=== PATIENT | male | born 1975 | race African-American/Black ===

== ENCOUNTER 2024-05-19 10:49 | Inpatient (IN) | payer OTHER, SELFPAY ==
[2024-05-19] VITALS (45 sets, daily range): BP systolic 117–254; BP diastolic 68–227; PULSE 2; BMI 32.9; BMI 33.5
[2024-05-19 08:56] LABS: Venous Blood Gas B.E. -8.2 mmol/L (-4 to +4); Venous Blood Gas O2 Sat % 77.4 %; Venous Blood Gas pCO2 59 mmHg (35-48); Venous Blood Gas pO2 51 mmHg (30-50)
[2024-05-19 08:57] LABS: Venous Blood Gas pH 7.16 (7.32-7.43)
[2024-05-19 09:00] LABS: % Basophils 0.8 % (0-2); % Eosinophils 1.3 % (0-6); % Immature Granulocytes 0.5 % (0-0.5); % Lymphocytes 22.5 % (20.5-51.1); % Neutrophils 67.9 % (42.2-75.2); Absolute Basophils 0.1 10^3/uL (0-0.2); Absolute Eosinophils 0.2 10^3/uL (0-0.7); Absolute Immature Granulocytes 0.1 10^3/uL (0-0.05); Absolute Lymphocytes 3.2 10^3/uL (1.2-3.4); Absolute Neutrophils 9.6 10^3/uL (1.4-6.5); Hematocrit 37.7 % (39.0-52.0); Hemoglobin 12.2 g/dL (13.0-18.0); Mean Corp Hgb Conc. 32.4 g/dL (33.0-37.0); Mean Corpuscular Volume 86.7 fL (80.0-94.0); Mean Platelet Volume 9.5 fL (7.4-10.4); Nucleated Red Blood Cells % 0 % (-); Platelet Count 461 10^3/uL (130-400); Red Blood Cell Count 4.35 10^6/uL (4.70-6.10); Red Cell Dist. Width 14.5 % (11.5-14.5); White Blood Cell Count 14.2 10^3/uL (4.8-10.8)
[2024-05-19] MEDS: NITROGLYCERIN PREMIX 250 IV ×2 (09:12→21:07)
--- NOTE | 2024-05-19 09:16 | ED.GENMED ---
History of Present Illness
General
Chief Complaint: Breathing Problem
Time Seen by Provider: 05/19/24 08:40
History of Present Illness
History of Present Illness:
48-year-old male with reported history of hypertension, not currently on any medication, presenting to the emergency department with respiratory distress. Patient arrives by medics, called to patient's place of work for chest pain and shortness of
breath. On their arrival, patient with increased work of breathing, and marked hypertension. Patient notes history of hypertension, however is not on any medications for it. Patient notes pain, denies any symptoms yesterday or any known history
of cardiac disease. On arrival to the hospital, markedly hypertensive, increased work of breathing, acute distress. No additional history or symptoms obtained at this time given patient's critical condition
Phy Exam
Physical Exam
Physical Exam:
General: Acute respiratory distress
HEENT: Arrives on CPAP
Neck: appears supple
CV: Tachycardic, regular rhythm, no evidence of cyanosis
Resp: Work of breathing, tachypneic, retractions, diffuse crackles and diaphoresis
Abd: Soft and non-distended, no tenderness to palpation
Extremities: +2 pitting edema bilaterally
Neuro: alert, no focal neurologic deficit
: deferred
Rectal: deferred
Psych: Normal affect
Skin: Intact
Scores
Heart Failure Risk
Heart Failure Risk Score: Yes
History of Stroke or TIA: No
History of intubation for respiratory distress: No
Heart rate on ED arrival >/= 110: Yes
SaO2 <90% on arrival on room air: Yes
HR >/=110 during 3min walk test (or too ill to perform test): Yes
ECG has acute ischemic changes: No
Urea >/=12mmol/L (BUN 33.6mg/dL): No
Serum CO2>/=35mmol/L: No
Troponin I or T elevated to CO Level (0.4mg/dL): No
NT-proBNP >/=5,000ng/L (5,000pg/ml): Yes
HF Risk Score: 4
Admission Status: HIGH RISK 26.1% Consider SNF treatment or admission to hospital
Course
Orders/Labs/Results
Orders:
Orders
05/19/24 08:43
Chest X-ray Portable [CR Chest Portable - 1 View] Urgent
Comment:
Reason For Exam: respiratory
Reason Study Needs to be Portable: Unable to Transport
05/19/24 08:45
EKG [Electrocardiogram (*1)] Urgent
Reason for Study: Chest Pain
05/19/24 08:46
EKG- Treatment ONCE
05/19/24 08:49
Complete Blood Count/With Diff Urgent
Comprehensive Metabolic Panel Urgent
Glycohemoglobin (HgbA1c) Urgent
Magnesium Urgent
Comment: ADD ON
NT-proBNP Urgent
Phosphorus Urgent
Comment: ADD ON
Troponin I Urgent
Venous Blood Gas Urgent
%Oxygen/Room Air: 100
05/19/24 08:57
Furosemide [Lasix] 80 mg IV NOW STA
05/19/24 09:00
Nitroglycerin 100 mg/250 ml [Nitroglycerin Premix] 100 mg in 250 ml IV PER PROTOCOL
Initial dose in mcg/min, then titrate:: 200
Titrate to keep:: Other
Titrate to keep other:: SBP<160
Titrate by mcg/min:: 5 mcg/min, may increase by 10 mcg/min if dose > 20 mcg/min
Frequency of titrations (minutes):: every 3-5 minutes
Maximum dose in mcg/min:: 200
Begin to taper infusion when:: Remained at goal for 2hrs
Taper by mcg/min:: 5 mcg/min
Frequency of taper (minutes) if patient maintains goal:: 30
Taper to off?: Yes
If infusion off & no longer maintaining goal:: Contact Provider
05/19/24 09:25
Electrocardiogram (*1) Urgent
Reason for Study: Other
Other Reason for Exam: repeat
Electrocardiogram (*1) Urgent
Reason for Study: Other
Other Reason for Exam: repeat
EKG- Treatment ONCE
05/19/24 Lunch
Regular
At Your Request: Full Participation
05/19/24 10:05
Admit/Transfer Patient As Directed
Co-Sign Provider:
Level of Care: Inpatient admission
Assign to:: ICU
Physician / Group: Jenny
Diagnosis: HTN Emergency, pulm edema
Reason for Hospitalization: IV Lasix, BP control, cardio consult
Expected length of stay greater than two midnights?: Yes
ELOS- Estimated Length of Stay in days: 3
I certify the patient meets the requirements for IP care: Yes
PRN Pain Medication Management As Directed
May give lesser potent ordered pain med per pt: Yes
preference::
Protocol:: Medication orders for pain may be administered in a
manner that supports deferring to patient preference
when the pt is:
- Requesting an ordered lesser potent pain medication.
Least to most potent pain medications are defined
as: acetaminophen < NSAID < tramadol < opioids
(morphine, oxycodone, hydromorphone).
- Requesting a lesser dose of the same medication IF
ORDERED.
- Requesting a less intrusive route of administration
if both routes are prescribed by the provider (PO <
IV).
05/19/24 10:06
Code Status As Directed
Resuscitation Status: Full Code
05/19/24 10:14
Add On- LAB Routine
Tests Added?: HgbA1c
05/19/24 11:30
Acetaminophen [Tylenol] 650 mg PO Q6HPRN PRN
05/19/24 11:30
Echo 2D MMode Color/Doppler [Echo 2D MMode Color/Doppler] Routine
Reason for Study: CHF
CARDIOLOGY CONSULT Routine
Consulting Provider: David Webber
Was physician already notified: Yes
[employer] Consult Routine
Consulting Provider: Jose Rafael Drummond
Was physician already notified: Yes
Activity As Directed
Activity Level: Out of Bed-Early Mobility
I&O [Intake/ Output] As Directed
Frequency: q12h
DX Deep Vein Thrombosis Video Routine
05/19/24 16:00
Furosemide [Lasix] 80 mg IV BID AT 0800,1600
05/19/24 18:00
Enoxaparin Sodium [Lovenox] 40 mg SC QPM
05/20/24 06:00
Complete Blood Count/With Diff IN AM
Comprehensive Metabolic Panel IN AM
Abnormal Lab Results
05/19/24
08:49
WBC 14.2 H 10^3/uL
(4.8-10.8)
RBC 4.35 L 10^6/uL
(4.70-6.10)
Hgb 12.2 L g/dL
(13.0-18.0)
Hct 37.7 L %
(39.0-52.0)
MCHC 32.4 L g/dL
(33.0-37.0)
Plt Count 461 H 10^3/uL
(130-400)
Abs Immat Gran (auto) 0.1 H 10^3/uL
(0-0.05)
Absolute Neuts (auto) 9.6 H 10^3/uL
(1.4-6.5)
Absolute Monos (auto) 1.0 H 10^3/uL
(0.1-0.6)
VBG pH 7.16 L*
(7.32-7.43)
VBG pCO2 59 H mmHg
(35-48)
VBG pO2 51 H mmHg
(30-50)
VBG HCO3 21.0 L mmol/L
(22-27)
Carbon Dioxide 21 L mmol/L
(22-30)
BUN 26 H mg/dl
(9-20)
Glucose 194 H mg/dl
(70-99)
AST 114 H U/L
(17-59)
ALT 108 H U/L
(0-50)
05/19/24 08:49
05/19/24 08:49
Vital Signs
Initial and Last Documented VS:
Initial Vital Signs
Pulse Resp BP Pulse Ox
126 26 254/227 92
05/19/24 08:42 05/19/24 08:42 05/19/24 08:42 05/19/24 08:42
Last Documented Vital Signs
Temp Pulse Resp BP Pulse Ox
97.8 F 95 22 142/82 95
05/19/24 12:12 05/19/24 15:00 05/19/24 15:00 05/19/24 15:00 05/19/24 15:00
MDM/Problems Addressed
MDM/Problems Addressed:
48-year-old male with reported history of hypertension, not medicated, presenting with acute respiratory distress and hypertension. Vital signs on arrival significant for tachypnea, hypoxia, tachycardia, hypertension.
On arrival to hospital, clinical picture most consistent with hypertensive emergency with flash pulmonary edema, with multiple signs of volume overload on exam including JVD, crackles to all lung willis, +2 lower extremity pitting edema. Patient
markedly hypertensive on arrival, plan for initiation of nitroglycerin drip. Patient in acute respiratory distress, was respiratory called to bedside, placed on BiPAP. Patient's work of breathing much improved on BiPAP. Blood pressure
appropriately responding to nitro drip. Chest x-ray is consistent with diffuse pulmonary edema. Plan for laboratory analysis to continue close respiratory and cardiac monitoring.
09:20 - Patient continues to clinically improved, however will require continued BiPAP and nitroglycerin drip, titrate to MAP goals. Plan for ICU admission. Will discuss with hospitalist.
*EKG
Interpreted by ED Provider?: Yes
EKG Intrepretation Date: 05/19/24
EKG Intrepretation Time: 09:19
Interpretation: abnormal
Comparison EKG: no comparison EKG present
Heart Rate: 128
Rate: tachycardiac
Rhythm: sinus
[place]: normal axis
Interval: normal interval
QRS Pattern: normal QRS
Ischemia: non-specific ST changes
*Critical Care Note
Total Time (30-74mins, 75-104mins- exclusive of procedures): 62
comment:
The high probability of a clinically significant, sudden or life threatening deterioration of the cardiac and respiratory system(s) required my full and direct attention, intervention and personal management. The aggregate critical care time was 62
minutes. This time is in addition to time spent performing reported procedures but includes the following:
[x] Data Review and interpretation
[x] Patient assessment and monitoring of vital signs
[x] Documentation
[x] Medication orders and management
ED Attending Note
-
Portions of this chart may have been created with voice recognition software.� Occasional wrong word or��sound alike� substitutions may have occurred due to the inherent limitations of voice recognition software.
Discharge Plan
Departure
Patient Disposition: Admit
Date of Disposition: 05/19/24
Time of Disposition: 09:33
Presentation/result/management discussed w/ accepting MD/DO: Hospitalist
Patient with high blood pressure during this ER visit?: Yes
Condition: Serious
Discharge Problem:
Hypertensive emergency, Flash pulmonary edema
Interventions
Interventions:
*Risk Screen - Suicide Last Done: 05/19/24 10:10
*General Assessment Last Done: 05/19/24 10:10
*Neglect/Abuse Screening Last Done: 05/19/24 10:10
ED- Fall Risk Assessment Last Done: 05/19/24 10:10
*ED COVID-19 Vaccine History Last Done: 05/19/24 11:43
*Nursing Disposition Last Done: 05/19/24 11:56
ED- Cardiac Assessment Last Done: 05/19/24 10:10
ED- Pulmonary Assessment Last Done: 05/19/24 10:10
Discharge Date and Time
Discharge Date/Time: 05/19/24 11:40
[2024-05-19 09:17] LABS: ALT (SGPT) 108 U/L (0-50); AST (SGOT) 114 U/L (17-59); Albumin 4.5 g/dl (3.5-5.0); Alkaline Phosphatase 70 U/L (38-126); Blood Urea Nitrogen 26 mg/dl (9-20); Calcium 9.4 mg/dl (8.4-10.2); Carbon Dioxide 21 mmol/L (22-30); Chloride 107 mmol/L (98-107); Estimated Creatinine Clearance 88 ml/min; Glucose 194 mg/dl (70-99); Potassium 4.5 mmol/L (3.5-5.1); Sodium 142 mmol/L (135-145); Total Bilirubin 0.5 mg/dl (0.2-1.3); Total Protein 7.8 g/dl (6.3-8.2); eGFR > 60.00
[2024-05-19 09:29] LABS: NT-proBNP 2490 pg/ml; Troponin I 0.017 ng/ml
[2024-05-19] MEDS: LASIX 80 MG IV ×2 (09:29→16:17)
--- NOTE | 2024-05-19 10:09 | HPS.HSE ---
Family Physician
-
Family Physician: NOT KNOW UNKNOWN - PT DOES
Chief Complaint
-
Shortness of breath
History of Present Illness
48-year-old male went to work this morning and developed respiratory distress. 911 called and brought into the emergency room for evaluation. All symptoms started this morning.
Denies chest pain but does have chest tightness.
Started on nitroglycerin drip, BiPAP in the emergency room. Given 1 dose of IV Lasix. Initial blood pressure was significantly elevated but improved. Currently sitting up feeling much better.
Denies history of hypertension. Not on home medications. Last saw his primary care doctor in June. States he checks his blood pressures at home but cannot give me the numbers.
Medical History
Past Medical History
Past Medical History: Reports HTN
Past Surgical History: Reports None
Social History
Tobacco: Non-smoker
Alcohol: None
Drug: None
Personal:
Living: With Family
Family History
Family History: Not pertinent
Allergies / Home Medications
Allergies reflects when Allergies were last updated in [facility].
Home Medications with original date entered in [facility]
Allergy/Medication List:
Allergies
Allergy/AdvReac Type Severity Reaction Status Date / Time
No Known Allergies Allergy Unverified 05/19/24 09:09
Home Medications
No Meds [No Current Medications] 05/19/24
Review of Systems
-
History Source: Patient
A 12 point ROS was completed and negative except as noted: Yes
Physical Exam
Vital Signs
Vital Signs
Pulse Resp BP Pulse Ox
94 17 134/92 98
05/19/24 10:00 05/19/24 10:00 05/19/24 10:00 05/19/24 10:00
Physical Exam
General: Well Developed, Well Nourished, No Apparent Distress and Comfortable
HEENT: NormoCephalic, Anicteric and Moist mucous membranes
Respiratory: Rales
Cardiac: S1/S2, Regular Rhythm and Tachycardia
GI: Soft, Non Tender and Non Distended
Genito-urinary: Deferred by me
Musculoskeletal: No Clubbing, No Cyanosis, Edema, Left Lower Extremity and Edema, Right Lower Extremity
Skin: Warm and Dry
Neuro: AO x 3
Hematologic/Lymphatic: No Lymphadenopathy
Psych: Calm
Laboratory Results
-
05/19/24 08:49
05/19/24 08:49
Laboratory Results
Total Bilirubin 0.5 mg/dl (0.2-1.3) 05/19/24 08:49
AST 114 U/L (17-59) H 05/19/24 08:49
ALT 108 U/L (0-50) H 05/19/24 08:49
Alkaline Phosphatase 70 U/L (38-126) 05/19/24 08:49
Troponin I 0.017 ng/ml 05/19/24 08:49
Impression/Plan
-
Acute hypoxic respiratory failure -due to flash pulmonary edema due to hypertensive emergency, acute heart failure. Admit to ICU. Currently on BiPAP, transition to nasal cannula if able. Consult hr clerk.
Hypertensive emergency -blood pressure improving on nitroglycerin drip. IV Lasix started this morning. Titrate down nitroglycerin. Not on antihypertensives at home.
Acute heart failure exacerbation -unknown type of heart failure. Echocardiogram ordered. Continue IV Lasix. Consult cardiology. BNP 2490. Chest x-ray noted, bilateral pulmonary edema. Troponin negative. EKG with sinus rhythm, premature
supraventricular complexes. Nonspecific T wave abnormality.
Elevated transaminases -suspect passive congestion due to heart failure. Recheck labs tomorrow.
Hyperglycemia -glucose 194 this morning. Rule out diabetes. Check hemoglobin A1c.
Obesity due to excess calories
Full code
--- NOTE | 2024-05-19 10:44 | EDRN ---
Patient using the urinal at the bedside standing. Currently on 6 liters via nasal and SPO2 currently 94-95% Patient has no complaints. Cardiology at the bedside. Patient in no severe distress. Speaking to cardiology with ease
--- NOTE | 2024-05-19 10:54 | CON.CAR ---
Consultation
Consultation Request
Date/Time Consultation Requested: May 19, 2024 10 AM
Date/Time Consultation Performed: May 19, 2020 4:11 AM
Requesting Provider: Hospitalist
Performing Provider: David Webber
Reason for Consultation: Hypertension and pulmonary edema
Medical History
-
Chief Complaint: SOB
History of Present Illness:
48-year-old male with no significant past medical history who presented with significant shortness of breath. He woke up and went to work this morning and was unable to catch his breath. It was very significant and 911 was called. He may be
noticed some lower extremity swelling over the last 24 hours. He has no significant family history of cardiac disease or any family history at all. He denies any significant chest pain.
In the emergency room he was found to have significant hypertension and pulmonary edema. He was started on BiPAP and given IV Lasix.
Past Medical History
Past Medical History: None
Past Surgical History: None
Social History
Tobacco: Non-Smoker
Alcohol: None
Drug: None
Personal:
Living: With Family
Employment: Employed
Family History
Family History: Reviewed & Not Pertinent
Allergies / Home Medications
Allergy/AdvReac Type Severity Reaction Status Date / Time
No Known Allergies Allergy Unverified 05/19/24 09:09
�Medication �Instructions �Recorded �Confirmed �Type
No Meds [No Current Medications] 05/19/24 05/19/24 History
Review of Systems
-
All other systems: Negative unless noted
Physical Exam
Vital Signs
Pulse Resp BP Pulse Ox
90 22 141/95 95
05/19/24 10:40 05/19/24 10:40 05/19/24 10:40 05/19/24 10:40
Lab Results
05/19/24 08:49
05/19/24 08:49
Troponin I 0.017 ng/ml 05/19/24 08:49
Hre-Z-Klerxoeecew Pept 2490 pg/ml 05/19/24 08:49
Physical Exam
General: Well Developed, Well Nourished and No Apparent Distress
HEENT: Normocephalic and Anicteric
Respiratory: Clear and Non Labored Respirations
Cardiac: S1/S2 and Regular Rhythm
GI: Soft
Musculoskeletal: Edema
Skin: Warm and Dry
Neuro: AO x 3
Psych: Calm
Impression / Plan
-
Assessment: 48-year-old male with no significant past medical history presenting with hypertensive emergency and pulmonary edema.
Hypertensive emergency and pulmonary edema
-Improved on nitro drip titrate down
-Continue IV Lasix
-In the short-term can start nifedipine for better blood pressure control and to help titrating off the nitro drip
-Echocardiogram to evaluate heart function and valvular disease
Elevated liver enzymes
-Possibly secondary to hypertension and heart failure
Blood glucose 194
-Possible diabetes per primary
Data Reviewed
-
EKG: Tracing Personally Visualized and interpreted (sr)
Radiology: Report Reviewed by me
Labs: Labs Reviewed by me
--- NOTE | 2024-05-19 12:01 | CON.INTV ---
Consultation
Consultation Request
Date/Time Consultation Requested: 05/19/2024 - 1129
Date/Time Consultation Performed: 05/19/2024 - 1158
Requesting Provider: Dr. Alvaraod
Performing Provider: Dr. Drummond
Reason for Consultation: HTN crisis
Medical History
-
Chief Complaint: SOB + chest pain
History of Present Illness:
48-year-old male non-smoker with a past medical history of hypertension who presents with shortness of breath + chest pain. Patient was at work when he felt sudden shortness of breath. 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 patient in
severe respiratory distress. He was saturating 70% on room air and he was placed onto CPAP with saturations improved to 90%. He was given 3 nitro sublingual tabs prior to coming to the hospital. Symptoms started this morning. He denies chest
pain but has chest tightness. He last saw his PCP in June and says he checks his blood pressures at home but does not know what his numbers are. In the ER, blood pressure was 254/227, pulse rate 126, breathing at 26 breaths/min, and saturating
92% on BiPAP. Initial labs significant for leukocytosis to 14.2, Hb 12.2, platelet count 461, blood gas showed acute hypercapnia with pH 7.16, pCO2 59, glucose 194, troponin initially 0.017, and proBNP 2490. CXR shows extensive patchy bilateral
interstitial and airspace opacities likely representing pulmonary edema. He was given 80 mg Lasix and started on nitroglycerin drip and then transferred to the ICU for further care. Pinmaker services consulted for additional
management/recommendations.
When I saw the patient, he was feeling much better. He was taken off BiPAP and currently on 2 L/min nasal cannula. Current BP 162/82, heart rate 94 and saturating 96%. He is currently on nitroglycerin drip at 135mcg/min. He denies any history of
heart failure and does not take any medications. He denies a cough, chest pain, SOB at rest, JUAREZ, nausea, vomiting, fevers or chills.
PMHx: Hypertension
PSHx: Non-contributory
Past Medical History
Past Medical History: Other (Above as per HPI)
Past Surgical History: Other (Above as per HPI)
Social History
Tobacco: Non-smoker
Alcohol: None
Drug: None
Personal:
Living: With Family
Family History
Family History: Reviewed & Not Pertinent
Allergies / Home Medications
Allergies
Allergy/AdvReac Type Severity Reaction Status Date / Time
No Known Allergies Allergy Unverified 05/19/24 09:09
Home Medications
�Medication �Instructions �Recorded �Confirmed �Last Taken �Type
No Meds [No Current Medications] 05/19/24 05/19/24 Unknown History
Review of Systems
-
History Source: Patient
All other systems: Negative unless noted
Vitals / Labs / Diagnostic Testing
Vital Signs
Temp Pulse Resp BP Pulse Ox
98.6 F 89 18 121/78 95
05/19/24 16:16 05/19/24 19:15 05/19/24 19:15 05/19/24 19:15 05/19/24 19:30
Lab Data
05/19/24 08:49
05/19/24 08:49
Laboratory Results
05/19/24 05/19/24
12:00 12:34
PT 14.7 H
INR 1.12
APTT 23.1 L
pH Cancelled
pCO2 Cancelled
pO2 Cancelled
HCO3 Cancelled
O2 Delivery Level Cancelled
Diagnostic Testing:
Physical Exam
-
HEENT: Normocephalic and Anicteric
Cardiovascular: S1/S2 and Peripheral Edema (negative)
Respiratory: Wheeze (negative), Rales (bilateral), Rhonchi (negative) and Non-Labored Respirations
GI: Soft, Distended (Abdominal obesity), Non Tender and Normal Bowel Sounds
Neurology: AO x 3 and Tremors (negative)
Skin: Warm and Dry
General: Respiratory Distress (negative), Comfortable, Fever (negative) and Chills (negative)
Assessment
-
Assessment: 48-year-old male non-smoker with a past medical history of hypertension who presents with shortness of breath + chest pain. Patient was at work when he felt sudden shortness of breath. 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
patient in severe respiratory distress. He was saturating 70% on room air and he was placed onto CPAP with saturations improved to 90%. He was given 3 nitro sublingual tabs prior to coming to the hospital. Symptoms started this morning. He
denies chest pain but has chest tightness. He last saw his PCP in June and says he checks his blood pressures at home but does not know what his numbers are. In the ER, blood pressure was 254/227, pulse rate 126, breathing at 26 breaths/min,
and saturating 92% on BiPAP. Initial labs significant for leukocytosis to 14.2, Hb 12.2, platelet count 461, blood gas showed acute hypercapnia with pH 7.16, pCO2 59, glucose 194, troponin initially 0.017, and proBNP 2490. CXR shows extensive
patchy bilateral interstitial and airspace opacities likely representing pulmonary edema. He was given 80 mg Lasix and started on nitroglycerin drip and then transferred to the ICU for further care. Pinmaker services consulted for additional
management/recommendations.
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
Impression:
#Hypertensive crisis requiring BiPAP and now on nitroglycerin drip
#Acute pulmonary edema due to above
#Leukocytosis likely reactive due to above
#Anemia
#Thrombocytosis likely reactive due to above
#Acute respiratory failure with hypercapnia + hypoxia requiring BiPAP
#Hyperglycemia
#Transaminitis
#Elevated troponin likely due to type II TN with demand ischemia
Plan:
- Patient has markedly improved with diuresis and has been weaned off BiPAP and now on nasal cannula
- No longer need BiPAP; can use prn; if unable to wean off of oxygen then check ambulatory pulse oximetry prior to discharge
- He remains on nitroglycerin drip currently at 135mcg/min
- Wean down nitro gtt as tolerated while reducing SBP by 25% over the first 24 hrs, then reduce further from there; so goal SBP over next 24 hrs is: 160-180; after first 24 hrs then reduce to goal <140/90mmHg
- He will need PO anti-hypertensives; continue IV lasix for now but once BP improves then would stop lasix as pulmonary edema due to HTN crisis and not due to decompensated heart failure
- Trend I/O and monitor UOP and trend sCr
- Check echo
- Check A1C and lipid panel
- Rule out secondary causes of hypertension: Check TSH, aldosterone level, renin level, and plasma metanephrine (although suspicion is low for pheochromocytoma)
- Check renal artery US to assess for renal artery stenosis
- Trend LFTs and trend troponin level until it peaks
- Maintain SpO2 >90-94% and wean down supplemental O2 as tolerated
- Maintain MAP>65
- Replete electrolytes with K>4, Mg>2
- Maintain euglycemia with goal BG 140-180
- Trend H/H and transfuse if needed to keep Hb>7g/dL; keep plt>20k, unless there is concern for bleeding then keep plt>50k
- prn nebulized bronchodilators - not currently bronchospastic
- Incentive spirometer encouraged 10x per hour for at least 4 hrs a day
- DVT ppx: LMWH
Critical care statement: A total of 41 minutes of critical care time was provided for this patient today. This includes management of unstable vital signs, evaluation of the patient at bedside, reviewing the patient's pertinent medical records
including radiographs, microbiology, laboratory evaluations, and discussion with primary team, consultants, pharmacy, nutrition, physical therapy, case management, charge nurse, critical care nursing, and respiratory therapy.
--- NOTE | 2024-05-19 12:16 | PTCARENOTE ---
Rec'd patient from ED around 1130. Patient walked from stretcher to bed. AAOx3. NSR with PACs and PVCs on tele monitor. +3 edema in b/l LE. Palpable pulses. Pulse ox 96-97% on 6L nc. Slight crackles in b/l base. Urinal provided for voiding needs.
750 cc's of clear/yellow urine. Nitro gtt infusing @ 150 through L[facility] INT. Epic Trainer contacted for order clarification. Patient provided heart failure packet. Daily weight, worsening signs/symptoms, fluid restriction, low Na diet, measuring output
and Lasix teaching provided. Patient verbalizes understanding. No complaints at current time. Call navarrete within reach.
[2024-05-19 12:44] LABS: Venous Blood Gas B.E. 0.8 mmol/L (-4 to +4); Venous Blood Gas HCO3 27.4 mmol/L (22-27); Venous Blood Gas O2 Sat % 83.4 %; Venous Blood Gas pCO2 52 mmHg (35-48); Venous Blood Gas pH 7.33 (7.32-7.43); Venous Blood Gas pO2 51 mmHg (30-50)
[2024-05-19 12:52] LABS: INR 1.12; PT 14.7 Sec (11.4-14.6)
[2024-05-19 12:53] LABS: APTT 23.1 Sec (23.4-35.0)
[2024-05-19 14:24] LABS: Magnesium 2.2 mg/dl (1.6-2.3); Phosphorus 3.8 mg/dl (2.5-4.5)
[2024-05-19 15:44] LABS: Troponin I 0.057 ng/ml
--- NOTE | 2024-05-19 15:58 | PTCARENOTE ---
Flap Lining Binder notified of Troponin results. Repeat level to be drawn at 2100. Q6hr til peak.
--- NOTE | 2024-05-19 16:35 | PTCARENOTE ---
Patient reassessed. Minor changes. Edema in b/l LE improving. +2, pitting. O2 weaned to 2L nc. Pulse ox 94%. Crackles auscultated 1/2 up posteriorly (R>L). 1600 dose of Lasix administered. VSS. Weaning Nitro gtt as tolerated. Patient c/o JUAREZ. Tylenol
offered.
[2024-05-19] MEDS: TYLENOL 650 MG PO (16:43)
[2024-05-19] MEDS: LOVENOX 40 MG SC (17:34)
[2024-05-19 21:43] LABS: Troponin I 0.069 ng/ml
[2024-05-20] VITALS (37 sets, daily range): BP systolic 106–156; BP diastolic 68–103; BMI 32.0
--- NOTE | 2024-05-20 00:03 | PTCARENOTE ---
No change in pt assessment. Weaning Nitro gtt as tolerated per protocol. PM care provided, pt washed up in bathroom. Will monitor.
[2024-05-20] MEDS: TYLENOL 650 MG PO ×4 (03:47→23:24)
--- NOTE | 2024-05-20 04:00 | PTCARENOTE ---
AM labs sent. No change in previous assessment. Will monitor.
[2024-05-20 04:18] LABS: ALT (SGPT) 69 U/L (0-50); AST (SGOT) 37 U/L (17-59); Albumin 3.5 g/dl (3.5-5.0); Alkaline Phosphatase 46 U/L (38-126); Blood Urea Nitrogen 21 mg/dl (9-20); Calcium 8.7 mg/dl (8.4-10.2); Carbon Dioxide 26 mmol/L (22-30); Chloride 105 mmol/L (98-107); Estimated Creatinine Clearance 94 ml/min; Glucose 109 mg/dl (70-99); HDL Cholesterol 55 mg/dl; LDL Cholesterol, Calculated 76 mg/dl; Potassium 3.7 mmol/L (3.5-5.1); Sodium 141 mmol/L (135-145); Total Bilirubin 0.5 mg/dl (0.2-1.3); Total Cholesterol 145 mg/dl (50-199); Total Protein 6.2 g/dl (6.3-8.2); Triglyceride 71 mg/dl (10-149); Very Low Density Lipoprotein 14 mg/dl (0-30); eGFR > 60.00
[2024-05-20 04:21] LABS: % Basophils 0.5 % (0-2); % Eosinophils 1.2 % (0-6); % Immature Granulocytes 0.3 % (0-0.5); % Monocytes 10.9 % (1.7-9.3); % Neutrophils 75.1 % (42.2-75.2); Absolute Eosinophils 0.1 10^3/uL (0-0.7); Absolute Lymphocytes 0.9 10^3/uL (1.2-3.4); Absolute Monocytes 0.8 10^3/uL (0.1-0.6); Absolute Neutrophils 5.7 10^3/uL (1.4-6.5); Mean Corp Hgb Conc. 32.3 g/dL (33.0-37.0); Mean Corpuscular Hgb 27.2 pg (27.0-31.0); Mean Corpuscular Volume 84.5 fL (80.0-94.0); Mean Platelet Volume 9.6 fL (7.4-10.4); Nucleated Red Blood Cells % 0 % (-); Platelet Count 276 10^3/uL (130-400); Red Blood Cell Count 3.67 10^6/uL (4.70-6.10); Red Cell Dist. Width 14.2 % (11.5-14.5); White Blood Cell Count 7.6 10^3/uL (4.8-10.8)
[2024-05-20 04:31] LABS: Troponin I 0.052 ng/ml
[2024-05-20 04:47] LABS: TSH Reflex To Free T4 0.33 uIU/ml (0.47-4.68)
--- NOTE | 2024-05-20 07:58 | W.PN.INTV ---
Today's Communication / Plan
Recommendations
Wean nitroglycerin
Initiate oral antihypertensive
Diuresis
If able to be weaned off nitroglycerin drip then transfer out of ICU-call pulmonary if respiratory issues arise
Assessment
-
48-year-old male non-smoker with a past medical history of hypertension who presents with shortness of breath + chest pain. Patient was at work when he felt sudden shortness of breath. 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 911 called and found the patient in
severe respiratory distress. He was saturating 70% on room air and he was placed onto CPAP with saturations improved to 90%. He was given 3 nitro sublingual tabs prior to coming to the hospital. Symptoms started this morning. He denies chest
pain but has chest tightness. He last saw his PCP in June and says he checks his blood pressures at home but does not know what his numbers are. In the ER, blood pressure was 254/227, pulse rate 126, breathing at 26 breaths/min, and saturating
92% on BiPAP. Initial labs significant for leukocytosis to 14.2, Hb 12.2, platelet count 461, blood gas showed acute hypercapnia with pH 7.16, pCO2 59, glucose 194, troponin initially 0.017, and proBNP 2490. CXR shows extensive patchy bilateral
interstitial and airspace opacities likely representing pulmonary edema. He was given 80 mg Lasix and started on nitroglycerin drip and then transferred to the ICU for further care. Trolley Worker services consulted for additional
management/recommendations.
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
Impression:
#Hypertensive crisis requiring BiPAP and now on nitroglycerin drip
#Acute pulmonary edema due to above
#Leukocytosis likely reactive due to above
#Anemia
#Thrombocytosis likely reactive due to above
#Acute respiratory failure with hypercapnia + hypoxia requiring BiPAP
#Hyperglycemia
#Transaminitis
#Elevated troponin likely due to type II DC with demand ischemia
Plan:
The patient remains critically ill on a nitroglycerin drip
Supplemental oxygen if needed
Aspiration precautions
Weaned off BiPAP
Diuresis as tolerated
Monitor renal function, electrolytes, intake/output, lower extremity edema and weight
Replace electrolytes as needed
Monitor for end organ effect of severe hypertension
Hydralazine as needed
Labetalol as needed
Initiate oral antihypertensives
Check echocardiogram
Cardiology following-correspondence reviewed
Nitroglycerin drip initiated
Nitroprusside less attractive with potential for cyanide toxicity especially with renal insufficiency
Check for secondary causes including renal vascular/primary hyperaldosteronism/[place]'s/pheochromocytoma/etc. if hypertension is difficult to control
If able to be weaned off nitroglycerin drip then transfer out of ICU-call pulmonary if respiratory issues arise
DVT prophylaxis-on Lovenox
Early nutrition
Early mobilization
Critical care statement: A total of 44 minutes of critical care time was provided for this patient today. This includes management of unstable vital signs, evaluation of the patient at bedside, reviewing the patient's pertinent medical records
including radiographs, nitroglycerin and hypertensive emergency management, microbiology, laboratory evaluations, and discussion with primary team, consultants, pharmacy, nutrition, physical therapy, case management, charge nurse, critical care
nursing, and respiratory therapy.
Subjective Dataa
Subjective Data
Date of Service:
Date of Service: May 20, 2024
Chief Complaint: Trolley Worker Follow Up and Pulmonary Follow Up
Subjective:
Feels better, has a headache, no complaints of chest pain, shortness of breath, productive cough, abdominal pain, or leg swelling
Review of Systems
General: Other (Per HPI)
Objective Data
Data Reviewed
Vital Signs / I&O / Oxygen:
Vital Signs
Temp Pulse Resp BP Pulse Ox
99.5 F 99 21 120/72 97
05/20/24 07:58 05/20/24 07:00 05/20/24 07:00 05/20/24 07:00 05/20/24 07:00
Intake and Output
05/19/24 05/20/2424
06:59 06:59 06:59
Intake Total 551.3 / 560.3
Output Total 5050 / 5050
Balance -4498.7 / -4489.7
SaO2 97
Nasal Cannula flow liters per 2
minute
Physical Exam
General: Respiratory Distress (n) and Comfortable
HEENT: Normocephalic and Anicteric
Cardiovascular: Regular Rhythm
Respiratory: Wheeze (n), Crackles (Rare basilar), Rhonchi (n), Non-Labored Respirations, Accessory Resp Muscle Use (n) and Stridor (n)
GI: Soft, Non Distended and Non Tender
Neurology: Awake, Alert and No Motor Deficits
Skin: Warm, Good Color, Cyanosis (n), Jaundice (n) and Rash (n)
Labs/Micro/Reports
Lab Data
05/20/24 03:42
05/20/24 03:42
Laboratory Results
05/19/24 05/19/24
12:00 12:34
PT 14.7 H
INR 1.12
APTT 23.1 L
pH Cancelled
pCO2 Cancelled
pO2 Cancelled
HCO3 Cancelled
O2 Delivery Level Cancelled
--- NOTE | 2024-05-20 08:00 | PTCARENOTE ---
recd pt 0715 handoff at bedside, VS noted, remains on ntg see intervention for titration. skin warm, dry, taken to room air with sats remaining 95%. does note JUAREZ pain, not due for tylenol at this time. aware of plans, call navarrete in reach.
[2024-05-20] MEDS: LASIX 80 MG IV (08:20)
--- NOTE | 2024-05-20 12:07 | W.PN.INTV ---
Today's Communication / Plan
Recommendations
Wean of nitroglycerin
Transition to oral medication at passenger coach driver discretion
Continue diuresis
Assessment
-
48-year-old male with past medical history of hypertension not on medication presented to ED with sudden onset shortness of breath and chest pain. EMS was called and found him in severe respiratory distress. Satting 70% on room air and placed on
CPAP with improvement. He was given 3 sublingual tabs of nitroglycerin prior to coming into the hospital. In the ED, BP 254/227, pulse rate 126, respiratory rate 26, saturating 92% on BiPAP. Initial labs revealed leukocytosis 14.2, hemoglobin
12.2, platelet count 461, blood gas showed acute hypercapnia with pH 7.16, pCO2 59, glucose 194, troponin initially 0.017, proBNP 2490, elevated LFTs. Chest x-ray revealed extensive patchy bilateral interstitial and airspace opacities consistent
with pulmonary edema. He was given 80 mg IV Lasix been started on nitroglycerin drip. Transferred to ICU for further care. Blood pressure is now well managed, white blood cell and within normal limits, LFTs downtrending. Slight increase in
troponin with peak at 0.069 now downtrending. Renal Doppler revealed no stenosis. Echo revealed 45 to 50% ejection fraction with global hypokinesis.
Impression:
#Hypertensive crisis requiring BiPAP and now on nitroglycerin drip
#Acute pulmonary edema due to above
#Leukocytosis likely reactive due to above
#Anemia
#Thrombocytosis likely reactive due to above
#Acute respiratory failure with hypercapnia + hypoxia requiring BiPAP
#Hyperglycemia
#Transaminitis
#Elevated troponin likely due to type II DE with demand ischemia
Plan:
Respiratory
- The patient remains critically ill on a nitroglycerin drip
- Able to wean off BiPAP -> nasal cannula -> room air �supplemental oxygen if needed
- Check ambulatory pulse ox before discharge
- Aspiration precautions
- Transition to oral antihypertensives at cardiology discretion
Cardiovascular
-Continue Lasix 80 IV mg twice daily
-Monitor sCr,, electrolytes, intake/output, lower extremity edema and weight
-Replace electrolytes as needed
-Echo reveals 45 to 50% ejection fraction with global hypokinesis
-Transition to oral antihypertensive at cardiology discretion
-Nitroglycerin drip versus nitroprusside as nitroprusside increased risk of cyanide toxicity, harder to monitor, associated with decreased regional myocardial blood flow, and nitroglycerin more of a venodilator than nitroprusside further decreasing
pre-load.
-Hemoglobin A1c 5, LDL 76
-TSH 0.33, free T4 1.1
-Renin, aldosterone, plasma metanephrines pending
-Renal Doppler no stenosis
-LFTs improving
-Troponin peaked at 0.069 now down trending
-Maintain MAP >65
-Replete electrolytes K>4 and Mg >2
-Maintain euglycemia goal BG 140-180 - hga1c 5.
DVT Lovenox
Low sodium diet
Early mobilization
Subjective Dataa
Subjective Data
Date of Service:
Date of Service: May 20, 2024
Patient feels great, no complaints. Ready to go home.
Chief Complaint: Fiberline Supervisor Follow Up and Pulmonary Follow Up
Review of Systems
General: Fever (Negative) and Chills (Negative)
Cardiopulmonary: Dyspnea (Negative), Chest Pain (Negative) and Edema (Negative)
GI: Abdominal Pain (Negative), Nausea (Negative), Vomiting (Negative) and Diarrhea (Negative)
Neuro: Headache (Negative) and Weakness (Negative)
Objective Data
Data Reviewed
Vital Signs / I&O / Oxygen:
Vital Signs
Temp Pulse Resp BP Pulse Ox
99.2 F 89 21 129/69 94
05/20/24 11:35 05/20/24 08:20 05/20/24 07:00 05/20/24 08:20 05/20/24 08:00
Intake and Output
05/19/24 05/20/24 05/21/24
06:59 06:59 06:59
Intake Total 551.3 / 560.3 495 / 495
Output Total 5050 / 5050 1850 / 1850
Balance -4498.7 / -4489.7 -1355 / -1355
SaO2 94
Nasal Cannula flow liters per 2
minute
Physical Exam
General: Respiratory Distress (n) and Comfortable
HEENT: Normocephalic and Anicteric
Cardiovascular: Regular Rhythm and Peripheral Edema (Negative)
Respiratory: Wheeze (n), Crackles (Rare basilar), Rhonchi (n), Non-Labored Respirations, Accessory Resp Muscle Use (n) and Stridor (n)
GI: Soft, Non Distended and Non Tender
Neurology: Awake, Alert and No Motor Deficits
Skin: Warm, Good Color, Cyanosis (n), Jaundice (n) and Rash (n)
Labs/Micro/Reports
Lab Data
05/20/24 03:42
05/20/24 03:42
Laboratory Results
05/19/24
12:34
PT 14.7 H
INR 1.12
APTT 23.1 L
--- NOTE | 2024-05-20 12:30 | PTCARENOTE ---
weaning ntg as noted, see VS. stands to void without diff, large amount pale yellow after lasix, standing scale weight.
--- NOTE | 2024-05-20 12:46 | W.PN.CD ---
Today's Communication / Plan
-
starting metop and losartan for GDMT/htn
outpatient cardiology follow up
Impression / Plan
-
Assessment: 48-year-old male with no significant past medical history presenting with hypertensive emergency and pulmonary edema.
Hypertensive emergency and pulmonary edema
-Improved on nitro drip, titrate down
-starting valsartan today
-can stop IV lasix, examines euvolemic and very negative yesterday
-renal artery ultrasound normal, workup for secondary HTN pending, denies drug use
HFmrEF
- TTE with mildly reduced EF, normal valves, LA dilation
- GDMT, starting losartan and metop today
- outpatient follow up with cardiology
Elevated liver enzymes
-Possibly secondary to hypertension and heart failure
Blood glucose 194
-Possible diabetes per primary
Physical Exam
Vital Signs/Labs
Vital Signs
Temp Pulse Resp BP Pulse Ox
37.3 C 89 21 129/69 94
05/20/24 11:35 05/20/24 08:20 05/20/24 07:00 05/20/24 08:20 05/20/24 08:00
05/19/24 05/20/24 05/21/24
06:59 06:59 06:59
Actual Weight 91.2 kg 87.2 kg
05/20/24 03:42
05/20/24 03:42
PT 14.7 Sec (11.4-14.6) H 05/19/24 12:34
INR 1.12 05/19/24 12:34
APTT 23.1 Sec (23.4-35.0) L 05/19/24 12:34
Magnesium 2.2 mg/dl (1.6-2.3) 05/19/24 08:49
Triglycerides 71 mg/dl (10-149) 05/20/24 03:42
LDL Cholesterol, Calc 76 mg/dl 05/20/24 03:42
VLDL Cholesterol, Calc 14 mg/dl (0-30) 05/20/24 03:42
HDL Cholesterol 55 mg/dl 05/20/24 03:42
Free T4 1.10 ng/dl (0.78-2.19) 05/20/24 03:42
05/19/24
08:49
Lfu-Q-Bmwvgigssax Pept 2490
LAB Results
05/19/24 05/19/24 05/19/24
08:49 15:09 21:00
Troponin I 0.017 0.057 H* D Cancelled
05/19/24 05/20/24
21:12 03:42
Troponin I 0.069 H* 0.052 H*
Physical Exam
Constitutional: No acute distress and Comfortable
Cardiovascular: Rhythm & rate is regular, Pedal edema is absent, JVD pressure is normal, Systolic murmur absent and Diastolic murmur absent
Respiratory: Respiratory effort normal, Lungs clear to auscul. and Wheeze Absent
Neuro/Psych: AO x 3
Data Reviewed
-
Date of Service: May 20, 2024
Medical Decision Making: Reviewed Test Results
EKG: Tracing Personally Visualized and interpreted and Report Reviewed by me
Echo: Tracing Personally Visualized and interpreted and Report Reviewed by me
X-Ray/CT/US/MRI/NUC/PET: Image Personally Visualized and interpreted and Report Reviewed by me
Labs: Labs Reviewed by me
[2024-05-20] MEDS: DIOVAN 40 MG PO ×2 (13:24→19:40)
[2024-05-20] MEDS: LOPRESSOR 25 MG PO ×2 (14:03→19:41)
--- NOTE | 2024-05-20 14:09 | CM ---
CM following re: discharge planning.
Reviewed pt's chart, met with pt.
Pt is a 48 year old male, admitted with primary dx of Hypertensive crisis. Acute pulmonary edema.
Pt reports he lives with spouse 2SH, 4 steps to enter, has 2 supportive children. 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
PCP: pt does not remember the name.
Pharmacy: pt stated he did not use any pharmacy before due to not getting any meds and pt stated he will use [facility].
D/C plan: home with anticipated no needs. Family to transport at discharge.
CM will follow with discharge plan updates as hospitalization progresses
--- NOTE | 2024-05-20 14:30 | PTCARENOTE ---
off ntg gtt, meds given as noted. echo completed earlier along with renal ultrasound. ate breakfast late for that reason. otherwise no change.
--- NOTE | 2024-05-20 15:22 | W.PN.HOSP.TC ---
Today's Communication/Plan
-
Start losartan, beta-vishal
Wean off nitroglycerin drip
Stop Lasix
Assessment / Plan
Assessment / Plan
Constitutional: No acute distress and Comfortable
Cardiovascular: Rhythm & rate is regular, Pedal edema is absent, JVD pressure is normal, Systolic murmur absent and Diastolic murmur absent
Respiratory: Respiratory effort normal, Lungs clear to auscul. and Wheeze Absent
Neuro/Psych: AO x 3
#Acute hypoxic respiratory failure
� Secondary to acute flash pulmonary edema
� Status post diuresis, on room air now
Hypertensive emergency and pulmonary edema
-Titrate down nitroglycerin drip
-starting valsartan
-stop IV lasix, examines euvolemic
-renal artery ultrasound normal, workup for secondary HTN pending
- denies drug use
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
Acute HFpEF, stage II diastolic dysfunction
- TTE with mildly reduced EF, normal valves, LA dilation
- GDMT, losartan and BB
- outpatient follow up with cardiology
Elevated troponin
� Most likely nonischemic microinjury secondary to hypertensive emergency
� No chest pain�cardiology following
Elevated liver enzymes
-Possibly secondary to hypertension and heart failure, congestive hepatopathy
�Continue to monitor
Blood glucose 194
-a1c 5
DVT ppx
Lovenox
Total time spent on today's encounter was 50 minutes which included time spent in counseling the patient/family regarding diagnosis and treatment plan as listed above, goals of care, and symptom management. Case was discussed with nursing staff,
specialists, and care coordinators/case management. All labs and imaging personally reviewed by me. Remainder the time spent in detailed review of previous records, lab data, imaging, and other medical provider documentation.
Anticipated Discharge: Within 24 hours
Subjective/Interval History
-
Date of Service: May 20, 2024
Shortness of breath greatly improved, still on nitroglycerin drip
Objective Data
-
Labs:
Laboratory Results
05/20/24
03:42
WBC 7.6
Hgb 10.0 L
Hct 31.0 L
Plt Count 276 D
Sodium 141
Potassium 3.7
Chloride 105
Carbon Dioxide 26
BUN 21 H
Creatinine 1.0
Glucose 109 H
Calcium 8.7
Total Bilirubin 0.5
AST 37
ALT 69 H
Alkaline Phosphatase 46
Vital Signs:
Vital Signs
Temp Pulse Resp BP Pulse Ox
99.2 F 94 21 156/103 96
05/20/24 11:35 05/20/24 15:15 05/20/24 15:15 05/20/24 15:00 05/20/24 09:45
I&O
05/19/24 05/20/24 05/21/24
06:59 06:59 06:59
Intake Total 551.3 / 560.3 621 / 621
Output Total 5050 / 5050 2500 / 2500
Balance -4498.7 / -4489.7 -1879 / -1879
Review of Systems
-
History Source: Patient
All other systems: Not reviewed unless documented
Data Reviewed
-
Diagnostic Radiology: Image personally visualized and interpreted and Report Reviewed by me
Ultrasound: Image personally visualized and interpreted
Labs: Labs Reviewed by me
[2024-05-20] MEDS: LOVENOX 40 MG SC (17:26)
[2024-05-21] VITALS (8 sets, daily range): BP systolic 121–148; BP diastolic 79–99; BMI 32.0
--- NOTE | 2024-05-21 | PTCARENOTE ---
no changes in assessment, PRN tylenol given for mild JUAREZ, see MAR. pt oob to bathroom without issue overnight, hygiene done by pt. call navarrete within reach.
--- NOTE | 2024-05-21 03:50 | PTCARENOTE ---
AM labs sent. no changes in assessment noted. call navarrete in reach.
[2024-05-21 04:06] LABS: Hemoglobin 10.9 g/dL (13.0-18.0); Mean Corpuscular Hgb 28.1 pg (27.0-31.0); Mean Corpuscular Volume 85.1 fL (80.0-94.0); Mean Platelet Volume 10.1 fL (7.4-10.4); Platelet Count 299 10^3/uL (130-400); Red Blood Cell Count 3.88 10^6/uL (4.70-6.10); Red Cell Dist. Width 13.9 % (11.5-14.5); White Blood Cell Count 6.8 10^3/uL (4.8-10.8)
[2024-05-21 04:48] LABS: ALT (SGPT) 52 U/L (0-50); AST (SGOT) 27 U/L (17-59); Albumin 3.5 g/dl (3.5-5.0); Alkaline Phosphatase 42 U/L (38-126); Blood Urea Nitrogen 19 mg/dl (9-20); Calcium 8.8 mg/dl (8.4-10.2); Carbon Dioxide 26 mmol/L (22-30); Chloride 104 mmol/L (98-107); Estimated Creatinine Clearance 92 ml/min; Glucose 109 mg/dl (70-99); Potassium 3.9 mmol/L (3.5-5.1); Sodium 142 mmol/L (135-145); Total Bilirubin 0.5 mg/dl (0.2-1.3); Total Protein 6.5 g/dl (6.3-8.2); eGFR > 60.00
--- NOTE | 2024-05-21 07:41 | W.PN.INTV ---
Today's Communication / Plan
Recommendations
Nitroglycerin drip discontinued
Titrate oral antihypertensives per cardiology
Secondary causes of hypertension workup underway
Stable for transfer out of ICU-call pulmonary if respiratory issues arise
Assessment
-
48-year-old male non-smoker with a past medical history of hypertension who presents with shortness of breath + chest pain. Patient was at work when he felt sudden shortness of breath. 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
severe respiratory distress. He was saturating 70% on room air and he was placed onto CPAP with saturations improved to 90%. He was given 3 nitro sublingual tabs prior to coming to the hospital. Symptoms started this morning. He denies chest
pain but has chest tightness. He last saw his PCP in June and says he checks his blood pressures at home but does not know what his numbers are. In the ER, blood pressure was 254/227, pulse rate 126, breathing at 26 breaths/min, and saturating
92% on BiPAP. Initial labs significant for leukocytosis to 14.2, Hb 12.2, platelet count 461, blood gas showed acute hypercapnia with pH 7.16, pCO2 59, glucose 194, troponin initially 0.017, and proBNP 2490. CXR shows extensive patchy bilateral
interstitial and airspace opacities likely representing pulmonary edema. He was given 80 mg Lasix and started on nitroglycerin drip and then transferred to the ICU for further care. Tobacco Drier Operator services consulted for additional
management/recommendations.
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
Impression:
#Hypertensive crisis requiring BiPAP and now on nitroglycerin drip
#Acute pulmonary edema due to above-Heart failure with reduced EF
#Leukocytosis likely reactive due to above
#Anemia
#Thrombocytosis likely reactive due to above
#Acute respiratory failure with hypercapnia + hypoxia requiring BiPAP
#Hyperglycemia
#Transaminitis
#Elevated troponin likely due to type II NC with demand ischemia
Plan:
Hemodynamically improved
Nitroglycerin drip discontinued
Supplemental oxygen if needed
Aspiration precautions
No longer requiring BiPAP
Continue gentleas tolerated
Monitor renal function, electrolytes, intake/output, lower extremity edema and weight
Replace electrolytes as needed
Monitor for end organ effect of severe hypertension
Hydralazine as needed
Labetalol as needed
Initiate oral antihypertensives per cardiology
Echocardiogram 05/20/2024-EF 45-50%, global hypokinesis, stage II diastolic dysfunction, no valvular disease
Cardiology following-correspondence reviewed
Nitroglycerin drip-Weaned off
Check for secondary causes including renal vascular/primary hyperaldosteronism/Sonny's/pheochromocytoma/etc.-Pending
The patient has been weaned off nitroglycerin drip then transfer out of ICU-call pulmonary if respiratory issues arise
DVT prophylaxis-on Lovenox
Advance nutrition
Increase activity
Reviewed the patient's pertinent medical records including radiographs, nitroglycerin and hypertensive emergency management, microbiology, laboratory evaluations, and discussion with primary team, consultants, pharmacy, nutrition, physical therapy,
case management, charge nurse, critical care nursing, and respiratory therapy.
Subjective Dataa
Subjective Data
Date of Service:
Date of Service: May 21, 2024
Chief Complaint: Tobacco Drier Operator Follow Up and Pulmonary Follow Up
Subjective:
Feels better, no complaints of shortness of breath, chest pain or abdominal pain
Review of Systems
General: Other (Per HPI)
Objective Data
Data Reviewed
Vital Signs / I&O / Oxygen:
Vital Signs
Temp Pulse Resp BP Pulse Ox
98.6 F 84 19 142/90 94
05/21/24 03:39 05/21/24 07:00 05/21/24 07:00 05/21/24 07:00 05/21/24 03:47
Intake and Output
05/20/24 05/21/24 05/22/24
06:59 06:59 06:59
Intake Total 551.3 / 560.3 981 / 981
Output Total 5050 / 5050 2500 / 2500
Balance -4498.7 / -4489.7 -1519 / -1519
SaO2 94
Nasal Cannula flow liters per 2
minute
Physical Exam
General: Respiratory Distress (n) and Comfortable
HEENT: Normocephalic and Anicteric
Cardiovascular: Regular Rhythm and Peripheral Edema (Negative)
Respiratory: Wheeze (n), Crackles (Rare basilar), Rhonchi (n), Non-Labored Respirations, Accessory Resp Muscle Use (n) and Stridor (n)
GI: Soft, Non Distended and Non Tender
Neurology: Awake, Alert and No Motor Deficits
Skin: Warm, Good Color, Cyanosis (n), Jaundice (n) and Rash (n)
Labs/Micro/Reports
Lab Data
05/21/24 03:46
05/21/24 03:46
[2024-05-21] MEDS: LOPRESSOR 25 MG PO (08:04)
[2024-05-21] MEDS: DIOVAN 40 MG PO (08:04)
--- NOTE | 2024-05-21 08:57 | W.PN.CD ---
Today's Communication / Plan
-
will check with case management re: insurance coverage for entresto and dapagliflozin.
discharge pending
Impression / Plan
-
Assessment: 48-year-old male with no significant past medical history presenting with hypertensive emergency and pulmonary edema.
Hypertensive emergency and pulmonary edema
-s/p nitro gtt, now on valsartan with adequate BP control
-renal artery ultrasound normal, workup for secondary HTN pending, denies drug use
HFmrEF
- TTE with mildly reduced EF, normal valves, LA dilation
- GDMT, started valsartan and metoprolol today
- can consolidate metop to succinate 50
- will check with case management regarding coverage for Entresto and SGLT2i
- outpatient follow up with cardiology
PACs
- high burden on telemetry
- asymptomatic
- will consider Holter as outpatient to assess burden
Elevated liver enzymes
-Possibly secondary to hypertension and heart failure
Blood glucose 194
-Possible diabetes per primary
Physical Exam
Vital Signs/Labs
Vital Signs
Temp Pulse Resp BP Pulse Ox
36.7 C 82 19 155/92 94
05/21/24 07:47 05/21/24 08:04 05/21/24 07:00 05/21/24 08:04 05/21/24 03:47
05/20/24 05/21/24 05/22/24
06:59 06:59 06:59
Actual Weight 91.2 kg 87.2 kg
05/21/24 03:46
05/21/24 03:46
PT 14.7 Sec (11.4-14.6) H 05/19/24 12:34
INR 1.12 05/19/24 12:34
APTT 23.1 Sec (23.4-35.0) L 05/19/24 12:34
Magnesium 2.2 mg/dl (1.6-2.3) 05/19/24 08:49
Triglycerides 71 mg/dl (10-149) 05/20/24 03:42
LDL Cholesterol, Calc 76 mg/dl 05/20/24 03:42
VLDL Cholesterol, Calc 14 mg/dl (0-30) 05/20/24 03:42
HDL Cholesterol 55 mg/dl 05/20/24 03:42
Free T4 1.10 ng/dl (0.78-2.19) 05/20/24 03:42
05/19/24
08:49
Muo-B-Uxyvrovlnir Pept 2490
LAB Results
05/19/24 05/19/24 05/19/24
08:49 15:09 21:00
Troponin I 0.017 0.057 H* D Cancelled
05/19/24 05/20/24
21:12 03:42
Troponin I 0.069 H* 0.052 H*
Physical Exam
Constitutional: No acute distress
Cardiovascular: Rhythm & rate is regular, Pedal edema is absent, JVD pressure is normal and Systolic murmur absent
Respiratory: Respiratory effort normal
Neuro/Psych: AO x 3
Data Reviewed
-
Date of Service: May 21, 2024
Medical Decision Making: Reviewed Test Results
Labs: Labs Reviewed by me
--- NOTE | 2024-05-21 10:54 | W.PN.INTV ---
Today's Communication / Plan
Recommendations
Nitroglycerin drip discontinued
continue oral meds
Stable to downgrade out of ICU or discharge today at hospitalist discretion
Secondary causes of hypertension workup pending
Assessment
-
48-year-old male with past medical history of hypertension not on medication presented to ED with sudden onset shortness of breath and chest pain. EMS was called and found him in severe respiratory distress. Satting 70% on room air and placed on
CPAP with improvement. He was given 3 sublingual tabs of nitroglycerin prior to coming into the hospital. In the ED, BP 254/227, pulse rate 126, respiratory rate 26, saturating 92% on BiPAP. Initial labs revealed leukocytosis 14.2, hemoglobin
12.2, platelet count 461, blood gas showed acute hypercapnia with pH 7.16, pCO2 59, glucose 194, troponin initially 0.017, proBNP 2490, elevated LFTs. Chest x-ray revealed extensive patchy bilateral interstitial and airspace opacities consistent
with pulmonary edema. He was given 80 mg IV Lasix been started on nitroglycerin drip. Transferred to ICU for further care. Blood pressure is now well managed, white blood cell and within normal limits, LFTs downtrending. Slight increase in
troponin with peak at 0.069 now downtrending. Renal Doppler revealed no stenosis. Echo revealed 45 to 50% ejection fraction with global hypokinesis.
Chronic conditions MASS SPECTROSCOPIST: Hypertension
Impression:
#Hypertensive crisis requiring BiPAP and now on nitroglycerin drip
#Acute pulmonary edema due to above-Heart failure with reduced EF
#Leukocytosis likely reactive due to above
#Anemia
#Thrombocytosis likely reactive due to above
#Acute respiratory failure with hypercapnia + hypoxia requiring BiPAP
#Hyperglycemia
#Transaminitis
#Elevated troponin likely due to type II CO with demand ischemia
Plan:
Respiratory
-Nitroglycerin drip discontinued -> transition to oral meds ->downgrade out of ICU
-supplemental oxygen if needed
-No longer requires BIPAP
-Aspiration precautions
Cardiovascular
-HFmEF
-Lasix discontinued
-Echo reveals 45 to 50% ejection fraction with global hypokinesis
-Losartan 40 mg twice daily, metoprolol 50 XL per cardiology
-Cardiology outpatient follow-up
-Follow cr, electrolytes
-Renin, aldosterone, plasma metanephrines pending
-Renal Doppler no stenosis
-PACs
-High burden on tele
-outpatient f/u with holter monitor per cards
-LFTs improving
-Troponin peaked at 0.069 now down trending
-Maintain MAP >65
-Replete electrolytes K>4 and Mg >2
-Maintain euglycemia goal BG 140-180 - hga1c 5.
DVT Lovenox
Low sodium diet
Early mobilization
Subjective Dataa
Subjective Data
Date of Service:
Date of Service: May 21, 2024
Patient feels completely fine. Eager to go home. Discussed CHF with him at length. Grateful for explanation.
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
Objective Data
Data Reviewed
Vital Signs / I&O / Oxygen:
Vital Signs
Temp Pulse Resp BP Pulse Ox
98.0 F 82 19 155/92 96
05/21/24 07:47 05/21/24 08:04 05/21/24 07:00 05/21/24 08:04 05/21/24 09:21
Intake and Output
05/20/24 05/21/24 05/22/24
06:59 06:59 06:59
Intake Total 551.3 / 560.3 981 / 981
Output Total 5050 / 5050 2500 / 2500
Balance -4498.7 / -4489.7 -1519 / -1519
SaO2 96
Nasal Cannula flow liters per 2
minute
Physical Exam
General: Respiratory Distress (n) and Comfortable
HEENT: Normocephalic and Anicteric
Cardiovascular: Regular Rhythm and Peripheral Edema (Negative)
Respiratory: Wheeze (n), Crackles (Rare basilar), Rhonchi (n), Non-Labored Respirations, Accessory Resp Muscle Use (n) and Stridor (n)
GI: Soft, Non Distended and Non Tender
Neurology: Awake, Alert and No Motor Deficits
Skin: Warm, Good Color, Cyanosis (n), Jaundice (n) and Rash (n)
Labs/Micro/Reports
Lab Data
05/21/24 03:46
05/21/24 03:46
--- NOTE | 2024-05-21 11:40 | CM ---
CM following re: discharge planning.
Reviewed pt's chart, met with pt.
CM consulted to check the diallo for Entresto and Farxiga. Both Entresto and Farxiga 30 days free cards and $10.00 coupons provided. Pt stated he has commercial insurance and has prescription card ID [id number]. CM explained to the pt how to use those
coupons.
According to pt is medically stable to be discharged today. Pt is aware and he stated his spouse will transport home.
D/C plan: home with no needs. Spouse to transport.
--- NOTE | 2024-05-21 12:29 | W.PN.HOSP.TC ---
Today's Communication/Plan
-
GDMT, Entresto, metoprolol, dapagliflozin
� BMP outpatient
- outpatient follow up with cardiology
-F/u CBC and anemia w/u outpatient
Assessment / Plan
Assessment / Plan
Constitutional: No acute distress and Comfortable
Cardiovascular: Rhythm & rate is regular, Pedal edema is absent, JVD pressure is normal, Systolic murmur absent and Diastolic murmur absent
Respiratory: Respiratory effort normal, Lungs clear to auscul. and Wheeze Absent
Neuro/Psych: AO x 3
#Acute hypoxic respiratory failure
� Secondary to acute flash pulmonary edema
� Status post diuresis, on room air now
Hypertensive emergency and pulmonary edema
-Titrate down nitroglycerin drip
-Switch to dapagliflozin, Entresto
-stop IV lasix, examines euvolemic
-renal artery ultrasound normal, workup for secondary HTN pending
- denies drug use
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
Acute HFpEF, stage II diastolic dysfunction
- TTE with mildly reduced EF, normal valves, LA dilation
- GDMT, Entresto, metoprolol, dapagliflozin
� [facility] outpatient
- outpatient follow up with cardiology
Elevated troponin
� Most likely nonischemic microinjury secondary to hypertensive emergency
� No chest pain�cardiology following
Elevated liver enzymes
-Possibly secondary to hypertension and heart failure, congestive hepatopathy
�Continue to monitor
Blood glucose 194
-a1c 5
#Anemia, Chronic
-no evidence acute blood loss
-f/u cbc and work up outpt
DVT ppx
Lovenox
More than 30 minutes spent in discharge including
Final examination of the patient
Summarizing hospital stay
Instructions for continuing care to all relevant caregivers
Preparation of discharge records, prescriptions, and referral forms
Total time spent (35 in minutes):
Anticipated Discharge: Today
Subjective/Interval History
-
Date of Service: May 21, 2024
BP stable, no acute events overnight
Objective Data
-
Labs:
Laboratory Results
05/21/24
03:46
WBC 6.8
Hgb 10.9 L
Hct 33.0 L
Plt Count 299
Sodium 142
Potassium 3.9
Chloride 104
Carbon Dioxide 26
BUN 19
Creatinine 1.0
Glucose 109 H
Calcium 8.8
Total Bilirubin 0.5
AST 27
ALT 52 H
Alkaline Phosphatase 42
Vital Signs:
Vital Signs
Temp Pulse Resp BP Pulse Ox
97.8 F 82 19 155/92 96
05/21/24 11:40 05/21/24 08:04 05/21/24 07:00 05/21/24 08:04 05/21/24 09:21
I&O
05/20/24 05/21/24 05/22/24
06:59 06:59 06:59
Intake Total 551.3 / 560.3 981 / 981
Output Total 5050 / 5050 2500 / 2500
Balance -4498.7 / -4489.7 -1519 / -1519
Review of Systems
-
History Source: Patient
All other systems: Not reviewed unless documented
Data Reviewed
-
Diagnostic Radiology: Image personally visualized and interpreted and Report Reviewed by me
Ultrasound: Image personally visualized and interpreted
Labs: Labs Reviewed by me
--- NOTE | 2024-05-21 12:33 | W.DS.TRANS ---
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
-
Discharge Instructions:
Sleep Apnea Risk Low
Discharge Diagnosis/Procedures Hypertensive emergency and pulmonary edema
Acute HFmrEF
Acute HFpEF
Diet Low Cholesterol,Low Fat,2 Gram Sodium
Activity As tolerated
Blood Work bmp at the end of the week (3 days) (Checking
Scr with new medications); CBC in 1 week with
pcp assessing anemia
Instructions: *PCP/Other Rooming House Operator Heart Failure Instructions
Stand-Alone Forms:
Changes to Home Medications: Yes
Discharge Medications:
DC Medications w/original date entered in [employer]
dapagliflozin propanediol 10 mg tablet 10 mg PO DAILY 30 days #30 tabs 05/21/24
metoprolol succinate 50 mg tablet,extended release 24 hr 50 mg PO HS 30 days #30 tabs 05/21/24
sacubitril 49 mg-valsartan 51 mg tablet (Entresto) 1 tab PO BID 30 days #60 tabs 05/21/24
Home Medication Changes
dapagliflozin propanediol 10 mg tablet 10 mg PO DAILY 30 days #30 tabs 05/21/24
metoprolol succinate 50 mg tablet,extended release 24 hr 50 mg PO HS 30 days #30 tabs 05/21/24
sacubitril 49 mg-valsartan 51 mg tablet (Entresto) 1 tab PO BID 30 days #60 tabs 05/21/24
Pending Results: No
--- NOTE | 2024-05-21 13:41 | PTCARENOTE ---
s/w pt and selected pharmacy, communicated such to attending. erx sent. pt expressed concern with cost. CM s/w pt, and provided coupons. Stressed the importance of f/u with cardiology and primary. pt expressed understanding.
[2024-05-21 14:22] LABS: Cortisol, Random 5.2 ug/dl
== END 2024-05-21 13:47 | disposition home or self-care (01) | DRG 189 ==
LOC: ICU 10:49
PROVIDERS: Nurse Practitioner Family; ADMITTING PHYSICIAN Hospitalist; ATTENDING PHYSICIAN Internal Medicine; CONSULT PHYSICIAN Internal Medicine Cardiovascular Disease; CONSULT PHYSICIAN Internal Medicine Critical Care Medicine; EMERGENCY PHYSICIAN Student in an Organized Health Care Education/Training Program
DX: J96.01 Acute respiratory failure with hypoxia (principal); I50.21 Acute systolic (congestive) heart failure; I16.1 Hypertensive emergency; I11.0 Hypertensive heart disease with heart failure; E66.09 Other obesity due to excess calories; Z68.32 Body mass index [BMI] 32.0-32.9, adult
CPT/HCPCS: 71045; 80053; 80061; 82088; 82533; 82805; 83036; 83735; 83835; 83880; 84100; 84244; 84439; 84443; 84484; 85025; 85027; 85610; 85730; 93005; 93306; 93975; 94660; 96374; 99291